=== PATIENT | female | born 1980 | race Caucasian/White ===

== ENCOUNTER 2017-05-09 07:28 | Day surgery (SDC) | payer OTHER ==
[~2017-05-09 07:28] MED LIST: CEFAZOLIN 2 GM/50 ML (PMX) 50 ML IVPB; LACTATED RINGER'S 1,000 ML IV*
[2017-05-09] MEDS ORDERED: NEOSTIGMINE 3 MG/3 ML SYRINGE (09:05)
[2017-05-09] MEDS ORDERED: PROPOFOL 20 ML ×2 (09:05→09:56)
[2017-05-09] MEDS ORDERED: CEFAZOLIN 1 GM INJ (09:05)
[2017-05-09] MEDS ORDERED: ROCURONIUM 50 MG INJ (09:05)
[2017-05-09] MEDS ORDERED: MIDAZOLAM 1 MG/ML 2 ML INJ (09:06)
[2017-05-09] MEDS ORDERED: ROPIVACAINE 0.5 % 30 ML VIAL (09:06)
[2017-05-09] MEDS ORDERED: ONDANSETRON 4 MG INJ (09:06)
[2017-05-09] MEDS ORDERED: KETOROLAC 30 MG INJ (09:06)
[2017-05-09] MEDS ORDERED: METOCLOPRAMIDE 10 MG INJ (09:06)
[2017-05-09] MEDS: LIDOCAINE 1%/EPI 30 ML INJ (09:12)
[2017-05-09] MEDS ORDERED: HYDROmorphONE (0.2 MG/ML) 10ML SYG IV ×3 (10:00)
[2017-05-09] MEDS ORDERED: DIPHENHYDRAMINE 50 MG INJ IV (10:00)
[2017-05-09] MEDS ORDERED: ONDANSETRON 4 MG INJ IV (10:00)
[2017-05-09] MEDS ORDERED: OXYCODONE/ACETAMINOPHEN (5/325) TAB PO (10:00)
[2017-05-09] MEDS ORDERED: MEPERIDINE 25 MG INJ IV (10:00)
[2017-05-09] MEDS ORDERED: HYDROmorphONE 2 MG/ML SYG (10:28)
[2017-05-09] MEDS: OXYCODONE/ACETAMINOPHEN (5/325) TAB PO (11:21)
== END 2017-05-09 12:37 | disposition home or self-care (01) ==
LOC: SDS 07:28
DX: Z30.2 Encounter for sterilization (principal); E66.9 Obesity, unspecified; Z68.39 Body mass index [BMI] 39.0-39.9, adult
CPT/HCPCS: 58670; 71045; 84703; 93005